=== PATIENT | male | born 1945 | race Caucasian/White ===

== ENCOUNTER 2022-07-17 14:36 | Inpatient (IN) | payer MEDICARE, MEDICAID ==
[~2022-07-17 14:36] MED LIST: Iopamidol-370 76% 500 ML 1 ML ONE
[2022-07-17 15:38] LABS: Hemoglobin 11.5 g/dL (14.0-18.0); Mean Corpuscular HGB CONC 33.9 g/dL (32.0-36.0); Mean Corpuscular Hemoglobin 33.3 pg (27.0-31.0); Mean Corpuscular Volume 98.2 fl (78.0-98.0); Mean Platelet Volume 8.4 fL (7.4-10.4); Platelet Count 134 10x3/uL (130-400); RBC Distribution Width 12.6 % (11.5-14.5); Red Blood Cell (RBC) Count 3.46 mill/uL (4.70-6.10); White Blood Cell (WBC) Count 8.9 10x3/uL (4.8-10.8)
[2022-07-17 15:59] LABS: Band 13 % (5-11); Lymphocytes 4 % (21-51); MDiff Complete? YES; Monocytes 12 % (0-10); Neutrophil 70 % (42-75); Platelet Morphology Comment Appears Adequate; Polychromasia SLIGHT = 2-3 cells (100X) (0-2/hpf); Reactive Lymphocytes 1 % (0-10)
[2022-07-17 15:59] LABS: ALT (SGPT) 28 U/L (8-55); AST (SGOT) 104 U/L (5-34); Albumin 3.4 g/dL (3.4-4.8); Alkaline Phosphatase 106 U/L (40-110); Anion Gap 12 mmol/L (10-20); BUN (Urea Nitrogen) 24 mg/dL (8.4-25.7); Bilirubin, Total 0.8 mg/dL (0.2-1.2); Calc. Creatinine Clearance 0 mL/min (70-130); Calcium 8.2 mg/dL (7.8-10.44); Carbon Dioxide 23 mmol/L (23-31); Chloride 105 mmol/L (98-107); Estimated GFR 82; Globulin 2.6 g/dL (2.4-3.5); Glucose 79 mg/dL (83-110); Potassium 4.2 mmol/L (3.5-5.1); Sodium 136 mmol/L (136-145)
[2022-07-17 16:19] LABS: CKMB 10.9 ng/mL (0-6.6)
[2022-07-17 17:09] LABS: Bacteria/HPF None Seen HPF (None Seen); Bilirubin Negative (Negative); Blood, Urine 3+ (Negative); Clarity Clear (Clear); Glucose, Urine (Dipstick) Normal (Negative); Ketone, Urine 20 mg/dL (Negative); Leukocyte Negative Leu/uL (Negative); Nitrite Negative (Negative); Protein, Urine (Dipstick) 20 mg/dL (Neg-Trace); RBC/HPF 0-3 HPF (0-3); Squamous Epithelial None Seen HPF (0-3); Urobilinogen Normal mg/dL (Less than 2); WBC/HPF 0-3 HPF (0-3); pH, Urine 6.5 (5.0-9.0)
[2022-07-17 17:10] LABS: Specific Gravity, Urine 1.045 (1.002-1.036)
[2022-07-17 19:54] LABS: Troponin I 0.215 ng/mL (< 0.028)
[2022-07-17] MEDS ORDERED: Ondansetron ODT 4 MG TAB PO PRN (20:43)
[2022-07-17] MEDS ORDERED: Senokot S 8.6-50 MG TAB PO PRN (20:43)
[2022-07-17] MEDS ORDERED: Lactated Ringer's 1,000 ML IV SCH (21:00)
[2022-07-17 22:03] LABS: Troponin I 0.241 ng/mL (< 0.028)
[2022-07-18 06:36] LABS: Anion Gap 11 mmol/L (10-20); BUN (Urea Nitrogen) 21 mg/dL (8.4-25.7); Calc. Creatinine Clearance 0 mL/min (70-130); Calcium 8.5 mg/dL (7.8-10.44); Carbon Dioxide 23 mmol/L (23-31); Cardiac Risk 3.1 (Less than 4.5); Chloride 104 mmol/L (98-107); Cholesterol 147 mg/dl (< 200 Desired); Estimated GFR 92; Glucose 90 mg/dL (83-110); HDL Cholesterol 47 mg/dL (>60 Neg Risk); LDL Cholesterol, Calculated 90 mg/dL; Potassium 4.1 mmol/L (3.5-5.1); Sodium 134 mmol/L (136-145); Triglycerides 51 mg/dL (Less than 150)
[2022-07-18 06:46] LABS: Band 22 % (5-11); Hemoglobin 12.3 g/dL (14.0-18.0); Hypochromia SLIGHT = 6-15 cells (100X) (0-5/hpf); Lymphocytes 6 % (21-51); MDiff Complete? YES; Mean Corpuscular HGB CONC 34.1 g/dL (32.0-36.0); Mean Corpuscular Hemoglobin 33.3 pg (27.0-31.0); Mean Corpuscular Volume 97.8 fl (78.0-98.0); Mean Platelet Volume 8.5 fL (7.4-10.4); Monocytes 14 % (0-10); Neutrophil 55 % (42-75); Platelet Count 130 10x3/uL (130-400); Platelet Morphology Comment Appears Adequate; RBC Distribution Width 12.6 % (11.5-14.5); Reactive Lymphocytes 3 % (0-10); White Blood Cell (WBC) Count 7.8 10x3/uL (4.8-10.8)
[2022-07-18 07:23] LABS: SARS-CoV-2 NAA Rapid Test DETECTED (NotDetected)
[2022-07-18] MEDS: Atorvastatin Calcium 40 MG TAB PO SCH (08:26)
[2022-07-18] MEDS: Famotidine 20 MG TAB PO SCH ×3 (08:27→20:50)
[2022-07-18] MEDS ORDERED: Divalproex Sodium 250 MG (DR) TAB ONE (10:04)
[2022-07-18] MEDS ORDERED: Aspirin Chewable 81 MG TAB ONE (10:04)
[2022-07-18] MEDS ORDERED: Famotidine 20 MG TAB ONE (10:04)
[2022-07-18] MEDS ORDERED: risperiDONE 1 MG TAB ONE (10:06)
[2022-07-18] MEDS ORDERED: Lorazepam 1 MG TAB ONE (10:06)
[2022-07-18] MEDS: Aspirin 81 mg Enteric Coated Tablet PO SCH (10:25)
[2022-07-18 14:12] LABS: Troponin I 0.163 ng/mL (< 0.028)
[2022-07-18] MEDS: Sodium Chloride 0.9% 1,000 ML IV SCH (15:14)
[2022-07-18 16:33] VITALS: BMI 21.1
[2022-07-18] MEDS ORDERED: Losartan 25 MG TAB PO SCH (16:45)
[2022-07-18] MEDS: Acetaminophen 325 MG TAB PO PRN (16:53)
[2022-07-18] MEDS: Mirtazapine 15 MG TAB PO SCH (20:50)
[2022-07-18] MEDS: Senokot 8.6 MG TAB PO SCH (20:50)
[2022-07-18] MEDS: Divalproex Sodium 125 mg Sprinkle Capsule PO SCH (20:50)
[2022-07-19] MEDS: Atorvastatin Calcium 20 MG TAB PO SCH ×2 (00:24→22:12)
[2022-07-19] MEDS: RisperDAL Oral Solution 1 MG/ML UDCUP PO SCH ×3 (00:25→23:20)
[2022-07-19] MEDS: Atorvastatin Calcium 40 MG TAB PO SCH (00:50)
[2022-07-19] MEDS: Acetaminophen 325 MG TAB PO PRN ×2 (04:18→22:11)
[2022-07-19 06:06] LABS: Band 15 % (5-11); Hypochromia SLIGHT = 6-15 cells (100X) (0-5/hpf); Lymphocytes 21 % (21-51); MDiff Complete? YES; Mean Corpuscular HGB CONC 33.6 g/dL (32.0-36.0); Mean Corpuscular Hemoglobin 33.1 pg (27.0-31.0); Mean Corpuscular Volume 98.6 fl (78.0-98.0); Mean Platelet Volume 8.3 fL (7.4-10.4); Monocytes 7 % (0-10); Neutrophil 55 % (42-75); Platelet Count 125 10x3/uL (130-400); Platelet Morphology Comment Appears Adequate; RBC Distribution Width 12.5 % (11.5-14.5); Reactive Lymphocytes 2 % (0-10); Red Blood Cell (RBC) Count 3.32 mill/uL (4.70-6.10); White Blood Cell (WBC) Count 7.1 10x3/uL (4.8-10.8)
[2022-07-19 06:08] LABS: Anion Gap 9 mmol/L (10-20); BUN (Urea Nitrogen) 22 mg/dL (8.4-25.7); Calc. Creatinine Clearance 59 mL/min (70-130); Calcium 7.8 mg/dL (7.8-10.44); Carbon Dioxide 23 mmol/L (23-31); Chloride 105 mmol/L (98-107); Estimated GFR 87; Glucose 100 mg/dL (83-110); Potassium 3.9 mmol/L (3.5-5.1); Sodium 133 mmol/L (136-145)
[2022-07-19] MEDS: Aspirin 81 mg Enteric Coated Tablet PO SCH (08:43)
[2022-07-19] MEDS: Divalproex Sodium 125 mg Sprinkle Capsule PO SCH ×3 (08:43→22:10)
[2022-07-19] MEDS: Senokot 8.6 MG TAB PO SCH ×2 (08:43→22:12)
[2022-07-19] MEDS: Losartan 25 MG TAB PO SCH (08:44)
[2022-07-19] MEDS: Famotidine 20 MG TAB PO SCH ×2 (08:44→22:14)
[2022-07-19] MEDS: Sodium Chloride 0.9% 1,000 ML IV SCH (08:46)
[2022-07-19] MEDS ORDERED: Atorvastatin Calcium 40 MG TAB PO SCH (09:00)
[2022-07-19] MEDS ORDERED: Iopamidol-370 76% 500 ML 1 ML ONE (11:53)
[2022-07-19] MEDS ORDERED: guaiFENesin 200 MG TAB PO PRN (13:37)
[2022-07-19] MEDS ORDERED: GUAIFENESIN SF SOLN 200 MG/10 ML UDCUP PO PRN (16:15)
[2022-07-19] MEDS: Mirtazapine 15 MG TAB PO SCH (22:12)
[2022-07-20 05:05] LABS: #Eosinphils 0.1 thou/uL (0.0-0.7); #Lymphocytes 1.8 thou/uL (1.20-3.40); #Monocytes 0.7 thou/uL (0.11-0.59); #Neutrophils 3.6 thou/uL (1.40-6.50); %Basophils 0.2 % (0.0-1.0); %Lymphocytes 28.8 % (21.0-51.0); %Monocytes 11.9 % (0.0-10.0); %Neutrophils 58.1 % (42.0-75.0); Hemoglobin 10.1 g/dL (14.0-18.0); Mean Corpuscular HGB CONC 33.8 g/dL (32.0-36.0); Mean Corpuscular Hemoglobin 33.6 pg (27.0-31.0); Mean Corpuscular Volume 99.6 fl (78.0-98.0); Mean Platelet Volume 8.2 fL (7.4-10.4); Platelet Count 112 10x3/uL (130-400); RBC Distribution Width 12.6 % (11.5-14.5); White Blood Cell (WBC) Count 6.1 10x3/uL (4.8-10.8)
[2022-07-20 05:17] LABS: Anion Gap 9 mmol/L (10-20); BUN (Urea Nitrogen) 26 mg/dL (8.4-25.7); Calc. Creatinine Clearance 59 mL/min (70-130); Calcium 7.4 mg/dL (7.8-10.44); Carbon Dioxide 23 mmol/L (23-31); Chloride 109 mmol/L (98-107); Estimated GFR 87; Glucose 81 mg/dL (83-110); Sodium 137 mmol/L (136-145)
[2022-07-20] MEDS: Sodium Chloride 0.9% 1,000 ML IV SCH (06:10)
[2022-07-20] MEDS: Famotidine 20 MG TAB PO SCH ×2 (08:56→21:23)
[2022-07-20] MEDS: Aspirin 81 mg Enteric Coated Tablet PO SCH (08:56)
[2022-07-20] MEDS: Losartan 25 MG TAB PO SCH (08:56)
[2022-07-20] MEDS: Senokot 8.6 MG TAB PO SCH ×2 (08:56→21:24)
[2022-07-20] MEDS: Divalproex Sodium 125 mg Sprinkle Capsule PO SCH ×3 (08:56→21:23)
[2022-07-20] MEDS: RisperDAL Oral Solution 1 MG/ML UDCUP PO SCH ×2 (08:57→21:45)
[2022-07-20] MEDS: Atorvastatin Calcium 20 MG TAB PO SCH (21:23)
[2022-07-20] MEDS: Mirtazapine 15 MG TAB PO SCH (21:24)
[2022-07-21] MEDS: Sodium Chloride 0.9% 1,000 ML IV SCH ×2 (01:47→22:24)
[2022-07-21 05:05] LABS: #Eosinphils 0.1 thou/uL (0.0-0.7); #Lymphocytes 1.1 thou/uL (1.20-3.40); #Monocytes 0.6 thou/uL (0.11-0.59); #Neutrophils 2.9 thou/uL (1.40-6.50); %Basophils 0.8 % (0.0-1.0); %Eosinophils 1.9 % (0.0-10.0); %Lymphocytes 23.2 % (21.0-51.0); %Monocytes 13.1 % (0.0-10.0); %Neutrophils 61.1 % (42.0-75.0); Hemoglobin 10.5 g/dL (14.0-18.0); Mean Corpuscular HGB CONC 33.4 g/dL (32.0-36.0); Mean Corpuscular Hemoglobin 33.3 pg (27.0-31.0); Mean Corpuscular Volume 99.7 fl (78.0-98.0); Mean Platelet Volume 8.3 fL (7.4-10.4); Platelet Count 122 10x3/uL (130-400); RBC Distribution Width 12.5 % (11.5-14.5); Red Blood Cell (RBC) Count 3.16 mill/uL (4.70-6.10); White Blood Cell (WBC) Count 4.7 10x3/uL (4.8-10.8)
[2022-07-21 05:29] LABS: ALT (SGPT) 28 U/L (8-55); AST (SGOT) 78 U/L (5-34); Albumin 2.6 g/dL (3.4-4.8); Alkaline Phosphatase 70 U/L (40-110); Anion Gap 9 mmol/L (10-20); BUN (Urea Nitrogen) 18 mg/dL (8.4-25.7); Bilirubin, Total 0.5 mg/dL (0.2-1.2); Calc. Creatinine Clearance 78 mL/min (70-130); Calcium 7.7 mg/dL (7.8-10.44); Carbon Dioxide 23 mmol/L (23-31); Chloride 111 mmol/L (98-107); Estimated GFR 95; Globulin 2.5 g/dL (2.4-3.5); Glucose 74 mg/dL (83-110); Potassium 3.8 mmol/L (3.5-5.1); Protein, Total 5.1 g/dL (5.8-8.1); Sodium 139 mmol/L (136-145)
[2022-07-21] MEDS: Losartan 25 MG TAB PO SCH (10:30)
[2022-07-21] MEDS: Senokot 8.6 MG TAB PO SCH (10:31)
[2022-07-21] MEDS: RisperDAL Oral Solution 1 MG/ML UDCUP PO SCH ×2 (10:31→21:42)
[2022-07-21] MEDS: Famotidine 20 MG TAB PO SCH ×2 (10:31→21:42)
[2022-07-21] MEDS: Divalproex Sodium 125 mg Sprinkle Capsule PO SCH ×3 (10:31→21:41)
[2022-07-21] MEDS: Aspirin 81 mg Enteric Coated Tablet PO SCH (10:31)
[2022-07-21] MEDS: Atorvastatin Calcium 20 MG TAB PO SCH (21:42)
[2022-07-21] MEDS: Mirtazapine 15 MG TAB PO SCH (21:42)
[2022-07-22 06:04] LABS: Mean Corpuscular HGB CONC 33.9 g/dL (32.0-36.0); Mean Corpuscular Hemoglobin 33.4 pg (27.0-31.0); Mean Corpuscular Volume 98.5 fl (78.0-98.0); Mean Platelet Volume 8.5 fL (7.4-10.4); Platelet Count 126 10x3/uL (130-400); RBC Distribution Width 12.2 % (11.5-14.5); Red Blood Cell (RBC) Count 2.99 mill/uL (4.70-6.10); White Blood Cell (WBC) Count 4.4 10x3/uL (4.8-10.8)
[2022-07-22 06:11] LABS: Anion Gap 9 mmol/L (10-20); BUN (Urea Nitrogen) 13 mg/dL (8.4-25.7); Calc. Creatinine Clearance 71 mL/min (70-130); Calcium 7.5 mg/dL (7.8-10.44); Carbon Dioxide 23 mmol/L (23-31); Chloride 110 mmol/L (98-107); Estimated GFR 93; Glucose 72 mg/dL (83-110); Potassium 3.9 mmol/L (3.5-5.1); Sodium 138 mmol/L (136-145)
[2022-07-22 06:30] LABS: Eosinophils 5 % (0-10); Lymphocytes 16 % (21-51); MDiff Complete? YES; Monocytes 12 % (0-10); Neutrophil 67 % (42-75); Platelet Morphology Comment Appears Decreased; Polychromasia SLIGHT = 2-3 cells (100X) (0-2/hpf)
[2022-07-22] MEDS: Losartan 25 MG TAB PO SCH (09:52)
[2022-07-22] MEDS: Famotidine 20 MG TAB PO SCH (09:52)
[2022-07-22] MEDS: RisperDAL Oral Solution 1 MG/ML UDCUP PO SCH (09:52)
[2022-07-22] MEDS: Aspirin 81 mg Enteric Coated Tablet PO SCH (09:52)
[2022-07-22] MEDS: Divalproex Sodium 125 mg Sprinkle Capsule PO SCH ×2 (09:52→14:01)
[2022-07-22] MEDS: Sodium Chloride 0.9% 1,000 ML IV SCH (18:23)
[2022-07-22 18:25] VITALS: BP 155/71; TEMP 98.7
== END 2022-07-22 18:45 | DRG 177 ==
LOC: ERS 14:36 → ERHOLD 18:28 → NEURO 07-18 12:04 → OBSVTOIN 07-19 11:32
PROVIDERS: ADMIT Internal Medicine; ATTEND Internal Medicine
PROC: 8E0ZXY6 Isolation (ICD-10-PCS; principal; 2022-07-19)
DX: U07.1 COVID-19 (principal); G93.41 Metabolic encephalopathy; E86.0 Dehydration; R00.1 Bradycardia, unspecified; I10 Essential (primary) hypertension; F31.9 Bipolar disorder, unspecified; F20.9 Schizophrenia, unspecified; I65.23 Occlusion and stenosis of bilateral carotid arteries; Z96.649 Presence of unspecified artificial hip joint; H91.90 Unspecified hearing loss, unspecified ear; Z86.73 Personal history of transient ischemic attack (TIA), and cerebral infarction without residual deficits; Z79.899 Other long term (current) drug therapy
CPT/HCPCS: 36415; 36416; 70450; 70496; 70498; 70551; 71045; 74177; 80048; 80053; 80061; 81003; 81015; 82553; 84145; 84484; 85025; 87040; 87086; 93005; 93306; 93880; 95816; 95819; 95957; 96372; G0378; J1650; J7050; J7120; Q9967; U0002